=== PATIENT | male | born 1955 | race Caucasian/White ===

== ENCOUNTER → 2017-01-05 | Outpatient (REF) | payer OTHER ==
[~2017-01-05] MED LIST: /AUGM875TA OR; ACET65TA OR; ASPI81TA45 OR; CIPR-249 PO; HYDR25TA6 OR; LISI20TA PO; LISI20TA5 OR; METR1TAB66 PO; MIRALEX PO; PERC7.5T8 OR; SILD50TA OR
== END ==
LOC: M LAB REF 16:54
PROVIDERS: ATTEND Physician Assistant
DX: J02.9 Acute pharyngitis, unspecified (principal)

== ENCOUNTER → 2018-06-22 | Outpatient (CLI) | payer OTHER ==
[~2018-06-22] MED LIST changes: +ASPI1TAB PO; +CLOB-25; +METR-201 PO; -METR1TAB66 PO; +PERCOCET PO; +PROC2.5C PR
--- NOTE | 2018-06-22 20:46 | ECGEPIP ---
Stationary ECG Study [facility] Test Date: 2018-06-22 Pat Name: VADIM FISHMAN Department: Room: - Gender: M Service Manager: [facility] : 1955 Requested By: RADHA Canchola Order Number: [id number] Reading MD: Alex Leija Measurements Intervals [place] Rate: 65 P: 25 NH: 132 QRS: 28 QRSD: 94 T: 29 QT: 370 QTc: 386 Interpretive Statements SINUS RHYTHM Baseline artifact Electronically Signed On 06-22-2018 20:45:52 EST by Alex Leija
== END ==
LOC: M EKG 14:54
PROVIDERS: ATTEND Anesthesiology
DX: I10 Essential (primary) hypertension (principal)

== ENCOUNTER 2018-06-29 10:30 | Day surgery (SDC) | payer OTHER ==
[~2018-06-29] VITALS: Ht 177.8 cm; Wt 85.8 kg
[~2018-06-29 10:30] MED LIST changes: +BUPIVACAINE HCL 0.25% 30 ML VIAL As Ordered ONE; +BUPIVACAINE LIPOSOME/PF 1.3% 20ML VIAL (13.3MG/ML)(EXPAREL)(C9290 PER1MG) As Ordered ONE; +GLYCOPYRROLATE INJ 0.2 MG/ML 2 ML VIAL As Ordered ONE; +KETOROLAC 60 MG/2 ML VIAL (J1885) As Ordered ONE; +LIDOCAINE 2% INJ 100 MG/5 ML SDV (FOR ANES.) As Ordered ONE; +LR 1,000 ML IV ONE; +MIDAZOLAM INJ 2 MG/2 ML VIAL (J2250) As Ordered ONE; +NEOSTIGMINE 10 MG/10 ML VIAL (J2710) As Ordered ONE; +ONDANSETRON 4MG/2ML VIAL (J2405) As Ordered ONE; -PERCOCET PO; +PROPOFOL 200 MG/20 ML VIAL As Ordered ONE; +ROCURONIUM BROMIDE 50 MG/5 ML VIAL As Ordered ONE; +dexameTHASONE 4 MG/ML 1ML VIAL (J1100) As Ordered ONE; +fentaNYL 100 MCG/2 ML INJECTION (J3010) As Ordered ONE
[2018-06-29] MEDS ORDERED: PERCOCET PO (11:53)
[2018-06-29] MEDS ORDERED: SUGAMMADEX SODIUM 500 MG/5 ML VIAL (BRIDION) As Ordered ONE (12:17)
[2018-06-29] MEDS ORDERED: IBUPROFEN 600 MG TAB PO PRN (13:45)
[2018-06-29] MEDS ORDERED: LR 1,000 ML IV SCH (13:45)
[2018-06-29] MEDS ORDERED: ACETAMINOPHEN TAB 650MG DOSE (2X325MG) PO PRN (13:45)
[2018-06-29] MEDS ORDERED: PERCOCET 5MG/325MG TAB PO PRN ×2 (13:45→14:00)
[2018-06-29] MEDS ORDERED: ONDANSETRON 4MG/2ML VIAL (J2405) IV PRN (13:45)
[2018-06-29] MEDS ORDERED: fentaNYL 100 MCG/2 ML INJECTION (J3010) IV PRN (14:00)
[2018-06-29 18:30] VITALS: BP 131/66
--- NOTE | 2018-06-30 19:09 | RO ---
DATE OF PROCEDURE: 06/29/2018 PREOPERATIVE DIAGNOSIS: Supraumbilical ventral incisional hernia. POSTOPERATIVE DIAGNOSIS: Supraumbilical ventral incisional hernia. PROCEDURE PERFORMED: Laparoscopic repair of ventral incisional hernia with 9 cm Parietex mesh patch. SURGEON: Nick Thomas MD NATUROPATH: Dr. Ramsay whose presence and assistance were required for management of the laparoscopic camera during the procedure. ANESTHESIA: General. INDICATIONS FOR PROCEDURE The patient is a 63-year-old man who has undergone a previous laparoscopic cholecystectomy and subsequently a laparoscopic appendectomy. He developed a small supraumbilical hernia along the midline at the site of his supraumbilical trocar site. He is now for a laparoscopic repair of his hernia with mesh. OPERATIVE PROCEDURE The patient was brought to the operating room and placed supine on the operating table. He was placed under general endotracheal anesthesia. The patient's abdomen was prepped and draped in a sterile fashion. A small area of local anesthesia was achieved in the right midabdomen laterally with 0.25% Marcaine. A short incision was made and a Veress needle was inserted. After a positive hanging drop test, insufflation was attempted but pressures were high and the Veress needle was removed and reinserted. Again a positive hanging drop test was achieved but on attempts at insufflation high pressures were encountered. Therefore, a second location for the Veress needle was selected in the right upper quadrant. A short transverse incision was made and again a positive hanging drop test was identified and on insufflation, high pressures were encountered. There had been a small amount of insufflation into the abdomen as noted by some air within his small supraumbilical hernia. The Veress needle in the right upper quadrant was removed. A small incision was made longitudinally through his old scar over the hernia site. The hernia sac was identified and opened. A 12-mm port was placed through the hernia sac. The abdomen was insufflated with carbon dioxide gas. Inspection in the right upper quadrant showed a small amount of insufflation into the pericolonic fatty tissues of the right upper quadrant. It was clear that both insertions of the Veress needle had penetrated the peritoneum. There was no evidence of any bleeding and no sign of any bowel injury. A 5 mm trocar was placed through the right lateral port and a second 5 mm port was placed in the right upper quadrant. The camera was shifted to the right lateral port. Inspection along the midline showed the single fascial defect about 2-1/2 cm in diameter through which the larger trocar entered just above the umbilicus. There were some old sutures noted in the fascia just beneath the umbilicus, but there was no sign of additional hernia. There was no significant preperitoneal fat along the midline although there was a suggestion of possible mild diastasis extending up from the area of the hernia sac into the higher epigastrium. The abdomen was then deflated and the supraumbilical trocar was removed. The hernia sac was dissected free from surrounding subcutaneous tissues and excised. The fascial edges were identified. A 9 mm round Parietex patch was selected. The midline was marked. #1-0 Ethibond sutures were used to close the fascial defect longitudinally. The midpoint suture was placed first and as this was placed a small bite was taken of the fascia at its midpoint and the mesh was then inserted into the abdomen. As the suture was tied down, it fixed to the mesh centered over the midpoint of the defect. Additional sutures were placed to complete the closure of the fascial defect. The abdomen was then reinflated. The mesh was flattened over the anterior abdominal wall and the pressure was reduced to 8 mmHg. A secure strap tacking device was used to tack the mesh to the anterior abdominal wall securely. Multiple tacks were placed around the periphery of the mesh with additional tacks placed in the more central portions of the mesh to fix this securely. A total of approximately 35 to 40 tacks were placed from the secure strap tacker. 20 mL of Exparel were mixed with 20 mL of 0.25% Marcaine infiltrated widely over the area of the mesh fixation with some also infiltrated around the two right-sided trocar sites. Inspection showed no evidence of any significant bleeding. Repeat examination in the right upper quadrant where the Veress needles had been inserted showed no evidence of any bleeding or injury. The abdomen was deflated and the remaining trocars were removed. The midline incision was closed with a buried Vicryl suture in the subcutaneous tissues and the skin edges were approximated in all three incisions with buried #5-0 Vicryl and Steri-Strips. Light dressings were applied. The patient tolerated the procedure well without apparent complication. He was awakened in the operating room, extubated and moved to the recovery room in stable condition. The mesh utilized for his surgery was Parietex mesh, reference code [id number] and it was lot number [id number].
== END 2018-06-29 19:05 | disposition home or self-care (01) ==
LOC: M SDC 10:30
PROVIDERS: ATTEND Surgery
DX: K43.2 Incisional hernia without obstruction or gangrene (principal); I10 Essential (primary) hypertension; E78.00 Pure hypercholesterolemia, unspecified; K76.0 Fatty (change of) liver, not elsewhere classified; J30.9 Allergic rhinitis, unspecified; B35.1 Tinea unguium; G47.33 Obstructive sleep apnea (adult) (pediatric)
CPT/HCPCS: 49654; 88302; C1781; C9290; J1100; J1885; J2250; J2405; J2710; J3010

== ENCOUNTER → 2021-12-28 | Outpatient (CLI) | payer MEDICARE, BC ==
[~2021-12-28] MED LIST changes: -ASPI1TAB PO; +ASPI81TA26 PO; -BUPIVACAINE HCL 0.25% 30 ML VIAL As Ordered ONE; -BUPIVACAINE LIPOSOME/PF 1.3% 20ML VIAL (13.3MG/ML)(EXPAREL)(C9290 PER1MG) As Ordered ONE; -GLYCOPYRROLATE INJ 0.2 MG/ML 2 ML VIAL As Ordered ONE; -KETOROLAC 60 MG/2 ML VIAL (J1885) As Ordered ONE; -LIDOCAINE 2% INJ 100 MG/5 ML SDV (FOR ANES.) As Ordered ONE; -LISI20TA PO; +LISI20TA35 PO; -LR 1,000 ML IV ONE; -METR-201 PO; +METR-265 PO; -MIDAZOLAM INJ 2 MG/2 ML VIAL (J2250) As Ordered ONE; -NEOSTIGMINE 10 MG/10 ML VIAL (J2710) As Ordered ONE; -ONDANSETRON 4MG/2ML VIAL (J2405) As Ordered ONE; +PERCOCET PO; -PROPOFOL 200 MG/20 ML VIAL As Ordered ONE; -ROCURONIUM BROMIDE 50 MG/5 ML VIAL As Ordered ONE; -dexameTHASONE 4 MG/ML 1ML VIAL (J1100) As Ordered ONE; -fentaNYL 100 MCG/2 ML INJECTION (J3010) As Ordered ONE
== END ==
LOC: M SLEEP HO 14:02
PROVIDERS: ATTEND Internal Medicine
DX: G47.33 Obstructive sleep apnea (adult) (pediatric) (principal)

== ENCOUNTER 2022-10-14 10:39 | Day surgery (SDC) | payer MEDICARE, BC ==
[~2022-10-14] VITALS: Ht 172.7 cm; Wt 75.2 kg
[~2022-10-14 10:39] MED LIST changes: +NS 1,000 ML IV ONE; +TADA10TA PO
[2022-10-14] MEDS ORDERED: propofoL 200 MG/20 ML VIAL As Ordered ONE (11:30)
[2022-10-14 12:07] VITALS: BP 125/67
== END 2022-10-14 12:18 | disposition home or self-care (01) ==
LOC: M OPP 10:39
PROVIDERS: ATTEND Surgery
DX: Z12.11 Encounter for screening for malignant neoplasm of colon (principal); Z79.82 Long term (current) use of aspirin; Z79.899 Other long term (current) drug therapy; Z88.5 Allergy status to narcotic agent

== ENCOUNTER → 2025-05-14 | Outpatient (REF) | payer MEDICARE ==
[~2025-05-14] MED LIST changes: -NS 1,000 ML IV ONE
== END ==
LOC: M SFHCPLAZ 08:06
PROVIDERS: ATTEND Family Medicine
DX: Z53.9 Procedure and treatment not carried out, unspecified reason (principal)